=== PATIENT | female | born 1985 | race Caucasian/White ===

== ENCOUNTER 2024-03-15 03:19 | Outpatient (CLI) | payer BC, SELFPAY | END 2024-03-15 03:20 | disposition home or self-care (01) | LOC: AMB 03-27 04:35 | PROVIDERS: Visit Provider Internal Medicine | DX: F41.9 Anxiety disorder, unspecified (principal); F91.9 Conduct disorder, unspecified | CPT/HCPCS: A0425; A0429 ==